=== PATIENT | female | born 1995 | race Caucasian/White ===

== ENCOUNTER 2018-03-29 21:57 | Emergency (ER) | payer BC ==
[2018-03-29 22:04] VITALS: BP 124/83; PULSE 92; RESP 18; TEMP 98.3
[2018-03-29] MEDS ORDERED: HYOSCYAMINE ELIXIR 250 MCG/10 ML BTL ONE (23:19)
[2018-03-29] MEDS ORDERED: MAG HYDROX/AL HYDROX/SIMETH 30 ML CUP ONE (23:19)
[2018-03-29] MEDS ORDERED: LIDOCAINE VISCOUS 2% 15 ML CUP ONE (23:19)
[2018-03-29] MEDS ORDERED: CIMETIDINE HCL 300 MG/5 ML ONE (23:19)
--- NOTE | 2018-04-17 09:08 | ED ---
Abdominal Pain HPI - General Chief Complaint: Abdominal Pain Stated Complaint: Abd Pain Source: patient Mode of arrival: ambulatory Limitations: no limitations - History of Present Illness Initial Comments: This patient is 22-year-old woman who presents to be evaluated for epigastric abdominal pain. She states that it has come on this evening. She was seen in the emergency department and was diagnosed with a "bacterial infection" for which she was given metronidazole. She has taken 2 doses of the metronidazole and then noted the pain coming on. MD Complaint: abdominal pain -: hour(s) Location: epigastric Radiation: none Migration to: no migration Severity: moderate Quality: cramping, aching Consistency: constant Improves With: nothing Worsens With: nothing Associated Symptoms: nausea - Related Data Home Medications Medication Instructions Recorded Confirmed metroNIDAZOLE [Flagyl] 500 mg PO BID 03/29/18 03/29/18 Allergies Allergy/AdvReac Type Severity Reaction Status Date / Time amoxicillin [From Augmentin] Allergy Unknown Verified 03/29/18 22:40 Childhood clavulanic acid Allergy Unknown Verified 03/29/18 22:40 [From Augmentin] Childhood Review of Systems ROS Statement: Those systems with pertinent positive or pertinent negative responses have been documented in the HPI. ROS Other: All systems not noted in ROS Statement are negative. Constitutional: Denies: fever Respiratory: Denies: cough, dyspnea Cardiovascular: Denies: chest pain, palpitations, edema Gastrointestinal: Reports: abdominal pain, nausea. Denies: vomiting, diarrhea, melena, hematochezia Genitourinary: Denies: dysuria, hematuria Musculoskeletal: Denies: back pain Skin: Denies: rash Past Medical History Past Medical History: No Reported History History of Any Multi-Drug Resistant Organisms: None Reported Past Surgical History: No Surgical Hx Reported Past Psychological History: No Psychological Hx Reported Smoking Status: Never smoker Past Alcohol Use History: Occasional Past Drug Use History: None Reported General Exam Limitations: no limitations General appearance: alert, in no apparent distress Head exam: Present: atraumatic, normocephalic Eye exam: Present: normal appearance. Absent: scleral icterus, conjunctival injection Respiratory exam: Present: normal lung sounds bilaterally. Absent: respiratory distress, wheezes, rales, rhonchi, stridor Cardiovascular Exam: Present: regular rate, normal rhythm, normal heart sounds. Absent: systolic murmur, diastolic murmur, rubs, gallop GI/Abdominal exam: Present: soft. Absent: distended, tenderness, guarding, rebound, rigid, mass, pulsatile mass, hernia Skin exam: Present: warm, dry, intact, normal color. Absent: rash Course Vital Signs 03/29/18 22:02 Temperature 98.3 F Pulse Rate 92 Respiratory 18 Rate Blood Pressure 124/83 O2 Sat by Pulse 98 Oximetry Medical Decision Making - Medical Decision Making Patient is 22-year-old woman with gastritis secondary to use metronidazole. She is feeling better with symptomatic treatment. Discussed further care and follow-up Disposition Clinical Impression: Gastritis Disposition: HOME SELF-CARE Condition: Good Is patient prescribed a controlled substance at d/c from ED?: No Referrals: None,Stated [Primary Care Provider] - 1-2 days
== END 2018-03-30 00:18 | disposition home or self-care (01) ==
LOC: EC 21:57
DX: K29.70 Gastritis, unspecified, without bleeding (principal); Z88.0 Allergy status to penicillin
CPT/HCPCS: 99283